=== PATIENT | female | born 1955 | race Caucasian/White ===

== ENCOUNTER 2016-10-02 18:37 | Emergency (ER) | payer MEDICARE, OTHER ==
[~2016-10-02] VITALS: Ht 165.1 cm; Wt 68.0 kg
[~2016-10-02 18:37] MED LIST: BENZ2TAB58 PO; DIVA500T35 PO; OLAN10TA3 PO; PANT40TA25 PO
[2016-10-02 19:33] LABS: BASOPHILS % (AUTO) 0.7 % (0.0-2.0); EOSINOPHILS % (AUTO) 2.5 % (1.0-6.0); HEMATOCRIT 37.5 % (36-46); HEMOGLOBIN 12.7 g/dL (12.0-16.0); LYMPHOCYTES # (AUTO) 1.8 K/uL (1.0-4.8); LYMPHOCYTES % (AUTO) 39.3 % (22.0-44.0); MEAN CORPUSCULAR HEMOGLOBIN 33.4 pg (26.0-34.0); MEAN CORPUSCULAR HGB CONC 33.7 G/dL (31.0-37.0); MEAN CORPUSCULAR VOLUME 99 fL (80-100); MONOCYTES # (AUTO) 0.5 K/uL (0.1-1.0); MONOCYTES % (AUTO) 10.2 % (2.0-9.0); NEUTROPHILS # (AUTO) 2.2 K/uL (1.8-7.7); NEUTROPHILS % (AUTO) 47.3 % (40.0-70.0); PLATELET COUNT (AUTO) 151 K/uL (150-450); RED BLOOD CELL COUNT(AUTO) 3.79 MIL/uL (4.00-5.20); RED CELL DISTRIBUTION WIDTH 13.8 % (11.5-14.5); WHITE BLOOD COUNT (AUTO) 4.7 K/uL (4.5-11.0)
[2016-10-02] MEDS ORDERED: ALBU8HFA4 IH (19:36)
[2016-10-02] MEDS ORDERED: TRAZ-147 PO (19:36)
[2016-10-02] MEDS ORDERED: LORA1TAB3 PO (19:36)
[2016-10-02] MEDS ORDERED: METO25 PO (19:36)
[2016-10-02] MEDS ORDERED: FLUO-125 PO (19:36)
[2016-10-02] MEDS ORDERED: MOM30 PO (19:36)
[2016-10-02] MEDS ORDERED: ACET325T47 PO (19:36)
[2016-10-02 19:58] LABS: ANION GAP 11 mmol/L (8-16); CALCIUM, TOTAL 8.8 mg/dL (8.8-10.5); CARBON DIOXIDE 26 mmol/L (22-29); CHLORIDE 102 mmol/L (98-107); CREATININE 0.63 mg/dL (0.60-1.30); GLOMERULAR FILTR. RATE CALC > 60 mL/min (>60); POTASSIUM 3.9 mmol/L (3.5-5.1); SODIUM SERUM 139 mmol/L (136-145); UREA NITROGEN, BLOOD 8 mg/dL (7-18)
[2016-10-02 20:01] LABS: ALANINE AMINOTRANSFERASE 22 U/L (12-78); ALBUMIN 3.2 g/dL (3.4-5.0); ASPARTATE AMINOTRANSFERASE 19 U/L (15-37); BILIRUBIN,TOTAL 0.4 mg/dL (0.1-1.0); TOTAL PROTEIN, SERUM 6.8 g/dL (6.4-8.2); VALPROIC ACID 80 mcg/mL (50-100)
[2016-10-02 21:51] LABS: APPEARANCE,URINE CLEAR (CLEAR); GLUCOSE, URINE (UA) NEGATIVE (NEGATIVE); KETONES,URINE NEGATIVE (NEGATIVE); OCCULT BLOOD,URINE NEGATIVE (NEGATIVE); PH,URINE 6.5 (5.0-8.0); PROTEIN,URINE NEGATIVE (NEGATIVE)
[2016-10-02 21:57] LABS: ADD UA MICROSCOPIC YES; LEUKOCYTE ESTERASE ,URINE SMALL (NEGATIVE); RBC,URINE 0-2 /HPF (0-2)
[2016-10-02 21:58] LABS: SQUAMOUS EPITHELIAL CELL,UR Few /LPF (None Seen)
[2016-10-02 22:38] VITALS: BP 116/86
== END 2016-10-02 23:46 | disposition home or self-care (01) ==
LOC: EMS 18:39
DX: S00.11XA Contusion of right eyelid and periocular area, initial encounter (principal); S09.90XA Unspecified injury of head, initial encounter; F20.9 Schizophrenia, unspecified; I10 Essential (primary) hypertension; J44.9 Chronic obstructive pulmonary disease, unspecified; F17.210 Nicotine dependence, cigarettes, uncomplicated; W19.XXXA Unspecified fall, initial encounter; Y93.89 Activity, other specified; Y92.89 Other specified places as the place of occurrence of the external cause; Y99.8 Other external cause status
CPT/HCPCS: 36415; 70450; 72125; 80053; 80164; 80307; 81001; 82140; 85025; 87086; 93005; 99285; 99406; G0480

== ENCOUNTER 2016-11-05 11:00 | Emergency (ER) | payer MEDICARE, OTHER ==
[~2016-11-05] VITALS: Ht 172.7 cm; Wt 75.0 kg
[~2016-11-05 11:00] MED LIST changes: +ACET325T47 PO; +ALBU8HFA4 IH; +FLUO-125 PO; +LORA1TAB3 PO; +METO25 PO; +MOM30 PO; +TRAZ-147 PO
[2016-11-05] MEDS ORDERED: DIVA125T PO (11:13)
[2016-11-05 13:04] LABS: BASOPHILS % (AUTO) 0.6 % (0.0-2.0); EOSINOPHILS % (AUTO) 2.2 % (1.0-6.0); HEMATOCRIT 44.1 % (36-46); HEMOGLOBIN 14.5 g/dL (12.0-16.0); LYMPHOCYTES # (AUTO) 1.9 K/uL (1.0-4.8); LYMPHOCYTES % (AUTO) 38.6 % (22.0-44.0); MEAN CORPUSCULAR HEMOGLOBIN 32.8 pg (26.0-34.0); MEAN CORPUSCULAR HGB CONC 32.9 G/dL (31.0-37.0); MEAN CORPUSCULAR VOLUME 100 fL (80-100); MONOCYTES # (AUTO) 0.6 K/uL (0.1-1.0); MONOCYTES % (AUTO) 11.7 % (2.0-9.0); NEUTROPHILS # (AUTO) 2.3 K/uL (1.8-7.7); NEUTROPHILS % (AUTO) 46.9 % (40.0-70.0); PLATELET COUNT (AUTO) 180 K/uL (150-450); RED BLOOD CELL COUNT(AUTO) 4.43 MIL/uL (4.00-5.20); RED CELL DISTRIBUTION WIDTH 13.2 % (11.5-14.5); WHITE BLOOD COUNT (AUTO) 4.9 K/uL (4.5-11.0)
[2016-11-05 13:23] LABS: ANION GAP 5 mmol/L (8-16); CALCIUM, TOTAL 9.4 mg/dL (8.8-10.5); CARBON DIOXIDE 30 mmol/L (22-29); CHLORIDE 98 mmol/L (98-107); CREATININE 0.61 mg/dL (0.60-1.30); GLOMERULAR FILTR. RATE CALC > 60 mL/min (>60); POTASSIUM 4.6 mmol/L (3.5-5.1); SODIUM SERUM 133 mmol/L (136-145); UREA NITROGEN, BLOOD 18 mg/dL (7-18)
[2016-11-05 13:28] LABS: ALANINE AMINOTRANSFERASE 79 U/L (12-78); ALBUMIN 3.5 g/dL (3.4-5.0); ASPARTATE AMINOTRANSFERASE 63 U/L (15-37); BILIRUBIN,TOTAL 0.3 mg/dL (0.1-1.0); CREATINE KINASE, TOTAL 27 U/L (26-192); TOTAL PROTEIN, SERUM 7.7 g/dL (6.4-8.2)
[2016-11-05 15:03] VITALS: BP 111/73
== END 2016-11-05 16:24 | disposition home or self-care (01) ==
LOC: EMS 11:03
DX: F20.9 Schizophrenia, unspecified (principal); R07.89 Other chest pain; F17.210 Nicotine dependence, cigarettes, uncomplicated; I10 Essential (primary) hypertension; J44.9 Chronic obstructive pulmonary disease, unspecified
CPT/HCPCS: 93005; 99285

== ENCOUNTER 2016-11-13 19:24 | Inpatient (IN) | payer MEDICARE, MEDICAID ==
[~2016-11-13] VITALS: Ht 162.6 cm; Wt 67.6 kg
[~2016-11-13 19:24] MED LIST changes: +DIVA125T PO; -DIVA500T35 PO
[2016-11-13] MEDS ORDERED: LURA80 PO (19:43)
[2016-11-13] MEDS ORDERED: OLAN10TA3 PO (19:43)
[2016-11-13] MEDS ORDERED: DIVA500T35 PO (19:43)
[2016-11-13] MEDS ORDERED: LORA2TAB2 PO (19:43)
[2016-11-13] MEDS ORDERED: TRAZ-144 PO (19:43)
[2016-11-13 20:16] VITALS: BP 119/85
[2016-11-13] MEDS ORDERED: LORazepam 2 MG TABLET PO PRN (20:30)
[2016-11-13] MEDS ORDERED: HALOPERIDOL 5 MG TABLET PO PRN (20:30)
[2016-11-13 21:42] LABS: BASOPHILS % (AUTO) 0.4 % (0.0-2.0); EOSINOPHILS % (AUTO) 0.9 % (1.0-6.0); HEMATOCRIT 39.8 % (36-46); HEMOGLOBIN 13.3 g/dL (12.0-16.0); LYMPHOCYTES # (AUTO) 1.7 K/uL (1.0-4.8); LYMPHOCYTES % (AUTO) 28.8 % (22.0-44.0); MEAN CORPUSCULAR HEMOGLOBIN 32.8 pg (26.0-34.0); MEAN CORPUSCULAR HGB CONC 33.5 G/dL (31.0-37.0); MEAN CORPUSCULAR VOLUME 98 fL (80-100); MONOCYTES % (AUTO) 16.9 % (2.0-9.0); NEUTROPHILS # (AUTO) 3.2 K/uL (1.8-7.7); PLATELET COUNT (AUTO) 163 K/uL (150-450); RED BLOOD CELL COUNT(AUTO) 4.06 MIL/uL (4.00-5.20); RED CELL DISTRIBUTION WIDTH 13.2 % (11.5-14.5)
[2016-11-13 21:55] LABS: ANION GAP 4 mmol/L (8-16); CALCIUM, TOTAL 8.8 mg/dL (8.8-10.5); CARBON DIOXIDE 29 mmol/L (22-29); CHLORIDE 103 mmol/L (98-107); CREATININE 0.71 mg/dL (0.60-1.30); GLOMERULAR FILTR. RATE CALC > 60 mL/min (>60); POTASSIUM 4.2 mmol/L (3.5-5.1); SODIUM SERUM 136 mmol/L (136-145); UREA NITROGEN, BLOOD 22 mg/dL (7-18)
[2016-11-13 21:59] LABS: ALANINE AMINOTRANSFERASE 63 U/L (12-78); ALBUMIN 3.4 g/dL (3.4-5.0); ASPARTATE AMINOTRANSFERASE 48 U/L (15-37); BILIRUBIN,TOTAL 0.3 mg/dL (0.1-1.0)
[2016-11-13 22:24] LABS: APPEARANCE,URINE CLEAR (CLEAR); GLUCOSE, URINE (UA) NEGATIVE (NEGATIVE); KETONES,URINE NEGATIVE (NEGATIVE); LEUKOCYTE ESTERASE ,URINE NEGATIVE (NEGATIVE); OCCULT BLOOD,URINE NEGATIVE (NEGATIVE); PH,URINE 6.5 (5.0-8.0); PROTEIN,URINE NEGATIVE (NEGATIVE)
[2016-11-13 22:26] LABS: ADD UA MICROSCOPIC NO
[2016-11-13] MEDS: OLANZapine 10 MG TABLET PO SCH (22:42)
[2016-11-13] MEDS: DIVALPROEX SODIUM 500 MG DR TABLET PO SCH (22:42)
[2016-11-14] MEDS ORDERED: PNEUMOCOCCAL VACCINE POLYVALENT 0.5 ML VIAL [PPSV23] IM ONE (06:15)
[2016-11-14 06:18] VITALS: BP 118/58
[2016-11-14] MEDS: DIVALPROEX SODIUM 500 MG DR TABLET PO SCH ×2 (08:55→16:26)
[2016-11-14] MEDS: NICOTINE 14 MG/24 HOUR PATCH TD SCH (09:00)
[2016-11-14 12:38] VITALS: BP 94/56
[2016-11-14] MEDS: OLANZapine 10 MG TABLET PO SCH (20:05)
[2016-11-15 06:10] VITALS: BP 119/77
[2016-11-15] MEDS: NICOTINE 14 MG/24 HOUR PATCH TD SCH (08:19)
[2016-11-15] MEDS: DIVALPROEX SODIUM 500 MG DR TABLET PO SCH ×2 (08:19→15:38)
[2016-11-15 08:33] VITALS: BP 104/61
[2016-11-15] MEDS: OLANZapine 10 MG TABLET PO SCH (20:29)
[2016-11-16 00:49] VITALS: BP 128/72
[2016-11-16] MEDS: NICOTINE 14 MG/24 HOUR PATCH TD SCH (08:37)
[2016-11-16] MEDS: DIVALPROEX SODIUM 500 MG DR TABLET PO SCH ×2 (08:37→16:14)
[2016-11-16 08:49] VITALS: BP 103/58
[2016-11-16 09:34] LABS: BASOPHILS % (AUTO) 0.7 % (0.0-2.0); EOSINOPHILS % (AUTO) 3.6 % (1.0-6.0); HEMATOCRIT 39.9 % (36-46); HEMOGLOBIN 13.2 g/dL (12.0-16.0); LYMPHOCYTES # (AUTO) 2.4 K/uL (1.0-4.8); LYMPHOCYTES % (AUTO) 41.5 % (22.0-44.0); MEAN CORPUSCULAR HEMOGLOBIN 32.9 pg (26.0-34.0); MEAN CORPUSCULAR HGB CONC 33.1 G/dL (31.0-37.0); MEAN CORPUSCULAR VOLUME 99 fL (80-100); MONOCYTES % (AUTO) 17.1 % (2.0-9.0); NEUTROPHILS # (AUTO) 2.1 K/uL (1.8-7.7); NEUTROPHILS % (AUTO) 37.1 % (40.0-70.0); PLATELET COUNT (AUTO) 171 K/uL (150-450); RED BLOOD CELL COUNT(AUTO) 4.02 MIL/uL (4.00-5.20); RED CELL DISTRIBUTION WIDTH 13.2 % (11.5-14.5); WHITE BLOOD COUNT (AUTO) 5.8 K/uL (4.5-11.0)
[2016-11-16 09:53] LABS: ALANINE AMINOTRANSFERASE 71 U/L (12-78); ANION GAP 6 mmol/L (8-16); ASPARTATE AMINOTRANSFERASE 55 U/L (15-37); BILIRUBIN,TOTAL 0.4 mg/dL (0.1-1.0); CARBON DIOXIDE 31 mmol/L (22-29); CHLORIDE 105 mmol/L (98-107); CREATININE 0.66 mg/dL (0.60-1.30); GLOMERULAR FILTR. RATE CALC > 60 mL/min (>60); POTASSIUM 4.5 mmol/L (3.5-5.1); SODIUM SERUM 142 mmol/L (136-145); TOTAL PROTEIN, SERUM 6.9 g/dL (6.4-8.2); UREA NITROGEN, BLOOD 18 mg/dL (7-18)
[2016-11-16] MEDS: OLANZapine 10 MG TABLET PO SCH (20:23)
[2016-11-17 04:00] VITALS: BP 108/77
[2016-11-17] MEDS: DIVALPROEX SODIUM 500 MG DR TABLET PO SCH ×2 (08:08→16:23)
[2016-11-17] MEDS: NICOTINE 14 MG/24 HOUR PATCH TD SCH (08:09)
[2016-11-17 08:24] VITALS: BP 100/60
[2016-11-17 16:08] VITALS: BP 130/82
[2016-11-17] MEDS: OLANZapine 10 MG TABLET PO SCH (20:06)
[2016-11-18 07:15] VITALS: BP 128/72
[2016-11-18] MEDS: TUBERCULIN, PURIFIED PROTEIN DERIVATIVE 5 TU/0.1 ML SYG ID ONE (08:09)
[2016-11-18] MEDS: DIVALPROEX SODIUM 500 MG DR TABLET PO SCH ×2 (08:27→16:26)
[2016-11-18] MEDS: NICOTINE 14 MG/24 HOUR PATCH TD SCH (08:31)
[2016-11-18 08:47] VITALS: BP 111/63
[2016-11-18 16:00] VITALS: BP 135/78
[2016-11-18] MEDS: OLANZapine 10 MG TABLET PO SCH (20:16)
[2016-11-19 06:48] VITALS: BP 112/71
[2016-11-19 08:01] VITALS: BP 103/54
[2016-11-19] MEDS ORDERED: OLAN10TA3 PO (08:01)
[2016-11-19] MEDS: DIVALPROEX SODIUM 500 MG DR TABLET PO SCH ×2 (08:04→16:10)
[2016-11-19] MEDS: NICOTINE 14 MG/24 HOUR PATCH TD SCH (08:10)
[2016-11-19] MEDS: TUBERCULIN, PURIFIED PROTEIN DERIVATIVE 5 TU/0.1 ML SYG ID ONE (09:52)
[2016-11-19] MEDS: OLANZapine 10 MG TABLET PO SCH (20:14)
[2016-11-20 07:10] VITALS: BP 108/62
[2016-11-20 08:10] VITALS: BP 101/64
[2016-11-20] MEDS: NICOTINE 14 MG/24 HOUR PATCH TD SCH (08:28)
[2016-11-20] MEDS: DIVALPROEX SODIUM 500 MG DR TABLET PO SCH ×2 (08:28→16:28)
[2016-11-20] MEDS ORDERED: IBUPROFEN 600 MG TABLET PO PRN (12:15)
[2016-11-20 13:18] VITALS: BP 115/75
[2016-11-20] MEDS: ACETAMINOPHEN 325 MG TABLET PO PRN (13:20)
[2016-11-20 16:00] VITALS: BP 106/61
[2016-11-20] MEDS: OLANZapine 10 MG TABLET PO SCH (21:04)
[2016-11-21 08:22] VITALS: BP 100/58
[2016-11-21] MEDS: DIVALPROEX SODIUM 500 MG DR TABLET PO SCH ×2 (08:37→16:03)
[2016-11-21] MEDS: NICOTINE 14 MG/24 HOUR PATCH TD SCH (08:38)
[2016-11-21 14:23] VITALS: BP 103/77
[2016-11-21] MEDS: ACETAMINOPHEN 325 MG TABLET PO PRN (14:25)
[2016-11-21 16:01] VITALS: BP 121/76
[2016-11-21] MEDS: OLANZapine 10 MG TABLET PO SCH (20:04)
[2016-11-22 08:17] VITALS: BP 113/65
[2016-11-22] MEDS: DIVALPROEX SODIUM 500 MG DR TABLET PO SCH ×2 (08:19→16:05)
[2016-11-22] MEDS: NICOTINE 14 MG/24 HOUR PATCH TD SCH (08:19)
[2016-11-22 16:05] VITALS: BP 127/66
[2016-11-22] MEDS: OLANZapine 10 MG TABLET PO SCH (20:16)
[2016-11-23 08:03] VITALS: BP 104/58
[2016-11-23] MEDS: NICOTINE 14 MG/24 HOUR PATCH TD SCH (08:37)
[2016-11-23] MEDS: DIVALPROEX SODIUM 500 MG DR TABLET PO SCH ×2 (08:37→16:15)
[2016-11-23] MEDS: OLANZapine 10 MG TABLET PO SCH (20:25)
[2016-11-24] MEDS: DIVALPROEX SODIUM 500 MG DR TABLET PO SCH ×2 (08:11→16:07)
[2016-11-24] MEDS: NICOTINE 14 MG/24 HOUR PATCH TD SCH (08:11)
[2016-11-24] MEDS: OLANZapine 10 MG TABLET PO SCH (20:17)
[2016-11-24 20:21] LABS: GLUCOSE,POINT OF CARE 118 MG/DL (70-110)
[2016-11-25 08:01] VITALS: BP 120/71
[2016-11-25] MEDS: DIVALPROEX SODIUM 500 MG DR TABLET PO SCH ×2 (08:23→16:18)
[2016-11-25] MEDS: NICOTINE 14 MG/24 HOUR PATCH TD SCH (08:24)
[2016-11-25 08:50] LABS: BASOPHILS # (AUTO) 0.05 K/uL (0.00-0.20); BASOPHILS % (AUTO) 0.9 % (0.0-2.0); EOSINOPHILS # (AUTO) 0.17 K/uL (0.00-0.70); EOSINOPHILS % (AUTO) 2.87 % (1.0-6.0); HEMATOCRIT 42.3 % (36-46); HEMOGLOBIN 14.2 g/dL (12.0-16.0); HEMOGLOBIN A1C 4.9 % (4.5-6.2); LYMPHOCYTES # (AUTO) 2.5 K/uL (1.0-4.8); LYMPHOCYTES % (AUTO) 43.6 % (22.0-44.0); MEAN CORPUSCULAR HEMOGLOBIN 32.9 pg (26.0-34.0); MEAN CORPUSCULAR HGB CONC 33.7 G/dL (31.0-37.0); MEAN CORPUSCULAR VOLUME 98 fL (80-100); MONOCYTES # (AUTO) 0.7 K/uL (0.1-1.0); MONOCYTES % (AUTO) 12.3 % (2.0-9.0); NEUTROPHILS # (AUTO) 2.4 K/uL (1.8-7.7); NEUTROPHILS % (AUTO) 40.4 % (40.0-70.0); PLATELET COUNT (AUTO) 220 K/uL (150-450); RED BLOOD CELL COUNT(AUTO) 4.32 MIL/uL (4.00-5.20); RED CELL DISTRIBUTION WIDTH 13.5 % (11.5-14.5); WHITE BLOOD COUNT (AUTO) 5.8 K/uL (4.5-11.0)
[2016-11-25 09:25] LABS: ALANINE AMINOTRANSFERASE 54 U/L (12-78); ALBUMIN 3.4 g/dL (3.4-5.0); ANION GAP 7 mmol/L (8-16); ASPARTATE AMINOTRANSFERASE 40 U/L (15-37); BILIRUBIN,TOTAL 0.5 mg/dL (0.1-1.0); CALCIUM, TOTAL 9.2 mg/dL (8.8-10.5); CARBON DIOXIDE 28 mmol/L (22-29); CHLORIDE 108 mmol/L (98-107); CHOL/HDL RATIO 2.9 (3.9-5.7); CREATINE KINASE, TOTAL 21 U/L (26-192); CREATININE 0.55 mg/dL (0.60-1.30); GLOMERULAR FILTR. RATE CALC > 60 mL/min (>60); POTASSIUM 4.1 mmol/L (3.5-5.1); SODIUM SERUM 143 mmol/L (136-145); THYROID STIMULATING HORMONE 2.17 uIU/mL (0.36-3.74); TOTAL PROTEIN, SERUM 7.4 g/dL (6.4-8.2); UREA NITROGEN, BLOOD 15 mg/dL (7-18)
[2016-11-25 16:00] VITALS: BP 113/63
[2016-11-25] MEDS: OLANZapine 10 MG TABLET PO SCH (20:12)
[2016-11-26 08:26] VITALS: BP 129/75
[2016-11-26] MEDS: DIVALPROEX SODIUM 500 MG DR TABLET PO SCH ×2 (08:39→16:09)
[2016-11-26 14:54] LABS: HEPATITIS Bs ANTIGEN SCREEN P Negative (Negative); HEPATITIS C AB SCREEN >11.0 s/co ratio (0.0-0.9)
[2016-11-26] MEDS: OLANZapine 10 MG TABLET PO SCH (20:55)
[2016-11-27 08:10] VITALS: BP 103/66
[2016-11-27] MEDS: DIVALPROEX SODIUM 500 MG DR TABLET PO SCH ×2 (08:40→16:26)
[2016-11-27 16:00] VITALS: BP 124/64
[2016-11-27] MEDS ORDERED: PNEUMOCOCCAL VACCINE POLYVALENT 0.5 ML VIAL [PPSV23] IM ONE (16:00)
[2016-11-27] MEDS: OLANZapine 10 MG TABLET PO SCH (20:19)
[2016-11-28 06:33] VITALS: BP 108/85
[2016-11-28 08:16] VITALS: BP 114/62
[2016-11-28] MEDS: DIVALPROEX SODIUM 500 MG DR TABLET PO SCH (08:16)
== END 2016-11-28 12:19 | disposition home or self-care (01) | DRG 885 ==
LOC: EMS 21:07 → B3A 11-14 04:00
PROVIDERS: ADMIT Psychiatry & Neurology Psychiatry; ATTEND Psychiatry & Neurology Psychiatry
PROC: 3E0234Z Introduction of Serum, Toxoid and Vaccine into Muscle, Percutaneous Approach (ICD-10-PCS; principal; 2016-11-28)
DX: F20.0 Paranoid schizophrenia (principal); S80.211A Abrasion, right knee, initial encounter; J44.9 Chronic obstructive pulmonary disease, unspecified; I10 Essential (primary) hypertension; F17.210 Nicotine dependence, cigarettes, uncomplicated; S09.90XA Unspecified injury of head, initial encounter; E55.9 Vitamin D deficiency, unspecified; E87.8 Other disorders of electrolyte and fluid balance, not elsewhere classified; B19.20 Unspecified viral hepatitis C without hepatic coma; W19.XXXA Unspecified fall, initial encounter; Y93.89 Activity, other specified; Z23 Encounter for immunization; Z71.6 Tobacco abuse counseling; Z78.1 Physical restraint status; Y92.098 Other place in other non-institutional residence as the place of occurrence of the external cause; Y99.8 Other external cause status
CPT/HCPCS: 70450; 80074; 82306; 82607; 82746; 82962; 83036; 83735; 84439; 84443; 86592; 87081; 90471; 99285; 99406; G0480